=== PATIENT | female | born 1995 | race Caucasian/White ===

== ENCOUNTER 2021-10-18 14:22 | Inpatient (IN) | payer BC, MEDICAID, SELFPAY ==
[2021-10-18 14:35] VITALS: BP 124/80; PULSE 60; RESP 16; TEMP 36.7; O2SAT 99
[2021-10-18] MEDS: LORazepam 2 mg Tablet PO (14:46)
[2021-10-18] MEDS: acetaminophen 325 mg Tablet 650 MG PO (14:46)
[2021-10-18] MEDS: hyDROXYzine 25 mg Capsule 50 MG PO (14:47)
--- NOTE | 2021-10-18 15:22 | PC.NURSE ---
1446 Administered 2mg Ativan for pt scoring 18 on CIWA scale.
[2021-10-18 19:28] VITALS: BP 105/70; PULSE 66; RESP 20; TEMP 36.7; O2SAT 99
[2021-10-19 06:00] VITALS: BP 100/57; PULSE 64; RESP 20; TEMP 36.6; O2SAT 98
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
[2021-10-19] MEDS: multivitamin therapeutic Tablet 1 TAB PO (08:59)
[2021-10-19] MEDS: folic acid 1 mg Tablet PO (08:59)
[2021-10-19] MEDS: thiamine 100 mg Tablet PO (08:59)
[2021-10-19] MEDS: divalproex ER 500 mg Tablet (24H) PO ×2 (09:04→20:36)
--- NOTE | 2021-10-19 09:17 | P.NPUHP_ITS ---
Providers/Chief Complaint Admitting Physician: Mathieu Hallman MD Chief Complaint: SI HPI NPU History of Present Illness Briana Michel is a 26 year old female admitted through our emergency department with the following report: 28-year-old female presented to the emergency room after being evidently dropped off by an unknown male.? She was behaving erratically and police were called and they arrived she had tangential thinking was not aware of time place or person.? She has a history of substance abuse.? When I came to see the patient she is difficult to engage, she answers questions with tangential thinking and deflects.? She declines to answer questions about suicidal thoughts or ideation.? She repeatedly states that she just needs documentation so that she can get an appointment and see how her day will go.? When I try to follow her line of thinking she is unable to provide any further answers.? We did contact her father who evidently has been estranged from her and could not give us any history.? She does not appear to have any auditory visual hallucinations. 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
[2021-10-19] MEDS: acetaminophen 325 mg Tablet 650 MG PO (09:45)
--- NOTE | 2021-10-19 09:48 | SUR.HOLD ---
RESTING IN BED AROUSES TO VOICE. DENIES SI/HI AN AVH AT THIS TIME. REPORTS 5/10 BACK PAIN. MED NURSE TO ADMINISTER TYLENOL ORDERED. PT WENT BACK TO BED AFTER INFORMED TO GO TO NURSES STATION TO GET MORNING MEDS.
[2021-10-19 14:00] VITALS: RESP 17
[2021-10-19 19:55] VITALS: BP 115/76; PULSE 69; RESP 20; TEMP 36.6; O2SAT 97
[2021-10-19] MEDS: quetiapine 100 mg Tablet PO (20:36)
[2021-10-19] MEDS: quetiapine 25 mg Tablet 50 MG PO (20:36)
[2021-10-20 06:00] VITALS: BP 94/66; PULSE 74; RESP 18; TEMP 36.6; O2SAT 98
[2021-10-20] MEDS: divalproex ER 500 mg Tablet (24H) PO (08:25)
[2021-10-20] MEDS: thiamine 100 mg Tablet PO (08:25)
[2021-10-20] MEDS: multivitamin therapeutic Tablet 1 TAB PO (08:26)
[2021-10-20] MEDS: folic acid 1 mg Tablet PO (08:26)
--- NOTE | 2021-10-20 10:32 | W.PM.NPUPNS ---
Subjective NPU Subjective: She had a little trouble getting to sleep last night with the Seroquel 150 mg. However when she got to sleep she slept well and slept for about 9 hours. She feels better today. She feels relatively calm. She is not having difficulty sitting still but that may be because I just woke her up from a nap at 10:15 AM. She does not have any side effects from the Depakote 500 mg twice a day thus far and agreed to increase to 1000 mg at bedtime. Mental Status Exam MSE Comments: This is a 26-year-old appropriate weight female who appears approximately her stated age and is in no acute distress. She is pleasant and cooperative with the evaluation. She is fairly well groomed and in hospital scrubs. psychomotor activity normal. Speech is at a regular rate and rhythm, normal volume, good articulation, not pressured. Alert, oriented X3 Attention and concentration appear to be normal. Memory is intact Mood is good. Affect is euthymic. Thought process is logical and goal-directed. Thought content: Denies auditory and visual hallucinations. No delusions or paranoia are noted. No current suicidal ideation. He denies homicidal ideation. Fund of knowledge is average. Insight and judgment appear to be fair. Impulse control is reportedly poor prior to hospitalization no indication of difficulty in the hospital. Cognition: Patient Appearance: Appropriate Patient Orientation (long list): Person, Place, Name and Age Comprehension Ability: No Impairment Hallucination Type: None Delusion Description: Not Present Thought Process: Circumstantial Affect: Affect Description: Appropriate Behavior: Patient Behavior: Cooperative and Withdrawn Speech Pattern: Appropriate and Clear Vitals/I&O/Wt Last Vital Signs Temp 98 F 10/20/21 06:00 Pulse 74 10/20/21 06:00 Resp 18 10/20/21 06:00 BP 94/66 10/20/21 06:00 Pulse Ox 98 10/20/21 06:00 A&P Assessment and plan (1) Bipolar 1 disorder, manic, moderate: Status: Acute (2) Cocaine abuse: Status: Acute (3) Alcohol abuse: Status: Acute Plan This is a 26-year-old female who reports symptoms of bipolar 1 disorder with prolonged manic and depressive episodes currently manic compounded with cocaine and alcohol abuse. Plan: 1.? Start Depakote and gradually increase to a therapeutic level.? Seroquel 150 mg for sleep 2.? Continue every 15 minute checks for safety. 3.? Encourage individual, group and milieu therapies. 4.? Encourage sober living treatment after discharge at the highest level of care to which she is willing to commit. 5.? We will monitor for safety for herself in the community prior to discharge. Involuntary Hold Information 96 Hour Hold: 96 Hour Involuntary Admission: No Attestations NPU Medical Necessity Statement*: Inpatient hospitalization is medically necessary and the clinically appropriate intervention at this time. We will initiate medications and make changes as indicated. 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
[2021-10-20 14:00] VITALS: BP 121/79; PULSE 81; RESP 18; TEMP 36.7; O2SAT 98
[2021-10-20] MEDS: OLANZapine 5 mg ODT PO (19:58)
[2021-10-20] MEDS: quetiapine 100 mg Tablet PO (19:58)
[2021-10-20] MEDS: quetiapine 25 mg Tablet 50 MG PO (19:58)
[2021-10-20] MEDS: divalproex ER 500 mg Tablet (24H) 1000 MG PO (19:59)
[2021-10-20 20:53] VITALS: BP 119/82; PULSE 78; RESP 16; TEMP 36.8; O2SAT 99
[2021-10-20] MEDS: trazodone 50 mg Tablet PO (22:03)
[2021-10-21 06:00] VITALS: BP 92/64; PULSE 72; RESP 15; TEMP 36.5; O2SAT 100
[2021-10-21] MEDS: divalproex ER 500 mg Tablet (24H) PO (06:11)
[2021-10-21 06:21] VITALS: BMI 24.7
[2021-10-21] MEDS: multivitamin therapeutic Tablet 1 TAB PO (08:26)
[2021-10-21] MEDS: acetaminophen 325 mg Tablet 650 MG PO (08:26)
[2021-10-21] MEDS: folic acid 1 mg Tablet PO (08:26)
[2021-10-21] MEDS: thiamine 100 mg Tablet PO (08:26)
[2021-10-21 14:00] VITALS: BP 112/74; PULSE 86; RESP 20; TEMP 37; O2SAT 99
--- NOTE | 2021-10-21 14:45 | W.PM.NPUPNS ---
Subjective NPU Subjective: She said that she slept 8 or 9 hours last night. She thinks that she was grinding her teeth and her jaw hurts this morning. She thought it was possibly the Seroquel although it did not happen previously. She took Zyprexa Zydis, Seroquel 150 mg and trazodone all at bedtime last night. She agreed to discontinue the Zydis and the Seroquel and try just trazodone tonight. She was given some ibuprofen for the pain. We will get a level on Depakote tomorrow. She feels like it is working well for her and she does not feel manic like she was. She also does not feel depressed. Mental Status Exam MSE Comments: This is a 26-year-old appropriate weight female who appears approximately her stated age and is in no acute distress. She is pleasant and cooperative with the evaluation. She is fairly well groomed and in hospital scrubs. psychomotor activity normal. Speech is at a regular rate and rhythm, normal volume, good articulation, not pressured. Alert, oriented X3 Attention and concentration appear to be normal. Memory is intact Mood is good. Affect is euthymic. Thought process is logical and goal-directed. Thought content: Denies auditory and visual hallucinations. No delusions or paranoia are noted. No current suicidal ideation. He denies homicidal ideation. Fund of knowledge is average. Insight and judgment appear to be fair. Impulse control is reportedly poor prior to hospitalization no indication of difficulty in the hospital. Cognition: Patient Appearance: Appropriate Patient Orientation (long list): Person, Place, Name, Age and Birthday Comprehension Ability: No Impairment Hallucination Type: None Delusion Description: Not Present Thought Process: Circumstantial Affect: Affect Description: Calm Behavior: Patient Behavior: Cooperative Speech Pattern: Clear Vitals/I&O/Wt Last Vital Signs Temp 98.6 F 10/21/21 14:00 Pulse 86 10/21/21 14:00 Resp 20 H 10/21/21 14:00 BP 112/74 10/21/21 14:00 Pulse Ox 99 10/21/21 14:00 Weight last 48 hrs Weight 61.292 kg A&P Assessment and plan (1) Bipolar 1 disorder, manic, moderate: Status: Acute (2) Cocaine abuse: Status: Acute (3) Alcohol abuse: Status: Acute Plan This is a 26-year-old female who reports symptoms of bipolar 1 disorder with prolonged manic and depressive episodes currently manic compounded with cocaine and alcohol abuse. Plan: 1.? Start Depakote and gradually increase to a therapeutic level.? Changed to trazodone 200 mg for sleep 2.? Continue every 15 minute checks for safety. 3.? Encourage individual, group and milieu therapies. 4.? Encourage sober living treatment after discharge at the highest level of care to which she is willing to commit. 5.? We will monitor for safety for herself in the community prior to discharge. Involuntary Hold Information 96 Hour Hold: 96 Hour Involuntary Admission: No Attestations NPU Medical Necessity Statement*: Inpatient hospitalization is medically necessary and the clinically appropriate intervention at this time. We will initiate medications and make changes as indicated. 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
[2021-10-21 19:37] VITALS: RESP 18
[2021-10-21] MEDS: trazodone 100 mg Tablet 200 MG PO (20:18)
[2021-10-21] MEDS: divalproex ER 500 mg Tablet (24H) 1000 MG PO (20:18)
[2021-10-22 06:00] VITALS: BP 107/67; PULSE 103; RESP 17; TEMP 37; O2SAT 98
[2021-10-22] MEDS: divalproex ER 500 mg Tablet (24H) PO (06:09)
[2021-10-22 07:34] LABS: Valproic Acid Level 95.9 ug/mL (50-100)
[2021-10-22] MEDS: folic acid 1 mg Tablet PO (07:50)
[2021-10-22] MEDS: multivitamin therapeutic Tablet 1 TAB PO (07:50)
[2021-10-22] MEDS: thiamine 100 mg Tablet PO (07:50)
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
[2021-10-22] MEDS: acetaminophen 325 mg Tablet 650 MG PO (10:24)
--- NOTE | 2021-10-22 10:25 | PC.NURSE ---
Patient with c/o headache rated 4. Tylenol 650 mg po given for this.
[2021-10-22 10:32] VITALS: BP 107/67; PULSE 103; RESP 17; TEMP 37; O2SAT 98
== END 2021-10-22 12:42 | disposition home or self-care (01) | DRG 885 ==
PROVIDERS: Admitting Provider Psychiatry & Neurology Psychiatry; Visit Provider Psychiatry & Neurology Psychiatry
DX: F31.12 Bipolar disorder, current episode manic without psychotic features, moderate (principal); R45.851 Suicidal ideations; D68.51 Activated protein C resistance; F10.10 Alcohol abuse, uncomplicated; F14.10 Cocaine abuse, uncomplicated; F12.90 Cannabis use, unspecified, uncomplicated
CPT/HCPCS: 36415; 80164; 97150; 97165